=== PATIENT | male | born 1995 | race Two or more races ===

== ENCOUNTER 2020-11-19 16:08 | Emergency (ER) | payer SELFPAY ==
--- NOTE | 2020-11-19 17:06 | EDM.PDOC ---
<Nereida Garcia - Last Filed: 11/19/20 17:28> ED HPI GENERAL MEDICAL PROBLEM - General Chief Complaint: Skin Complaint Stated Complaint: CUT ON KNEE Time Seen by Provider: 11/19/20 16:50 Source of Information: Reports: Patient History Limitations: Reports: No Limitations - History of Present Illness INITIAL COMMENTS - FREE TEXT/NARRATIVE: 25 year old male presents with a wound to his right knee presents with increased pain, swelling and redness. Patient reports that 4 days ago he remembers hitting his knee on the door and having some pain and then noticing a reddened area later in the night. Over the next couple days redness, swelling, and pain increased. Purulent drainage now present. He denies fevers, or systemic symptoms. Onset: Gradual Onset Date: 11/15/20 Duration: Day(s):, Getting Worse Location: Reports: Lower Extremity, Right Quality: Reports: Burning, Throbbing Severity: Moderate Improves with: Reports: Rest Worsens with: Reports: Movement Context: Reports: Other (noticed knee pain and then reddness "came out of no where") Associated Symptoms: Reports: No Other Symptoms Right Knee Pain Score (Numeric/FACES): 2 - Related Data Allergies Allergy/AdvReac Type Severity Reaction Status Date / Time No Known Allergies Allergy Verified 11/19/20 16:36 Home Meds: Home Meds Citalopram [Citalopram HBr] 40 mg PO BEDTIME 11/19/20 [History] Mirtazapine [Remeron] 30 mg PO BEDTIME 11/19/20 [History] Past Medical History HEENT History: Reports: Impaired Vision Musculoskeletal History: Reports: Fracture Psychiatric History: Reports: Anxiety, Dementia - Past Surgical History Musculoskeletal Surgical History: Reports: ORIF Social & Family History - Tobacco Use Tobacco Use Status *Q: Never Tobacco User - Caffeine Use Caffeine Use: Reports: Soda - Recreational Drug Use Recreational Drug Use: No ED ROS GENERAL - Review of Systems Review Of Systems: See Below Constitutional: Reports: No Symptoms. Denies: Fever, Chills, Weakness, Fatigue HEENT: Reports: No Symptoms Respiratory: Reports: No Symptoms. Denies: Shortness of Breath, Wheezing Cardiovascular: Reports: No Symptoms. Denies: Chest Pain, Dyspnea on Exertion Endocrine: Reports: No Symptoms GI/Abdominal: Reports: No Symptoms. Denies: Abdominal Pain, Nausea, Vomiting : Reports: No Symptoms Musculoskeletal: Reports: No Symptoms. Denies: Joint Pain Skin: Reports: No Symptoms, Wound (erythemia and edematous open area of skin on patients right knee, weaping serosanguinist drainage. small 0.5 cm pustule that is contained at 7 o clock location. erythema extends in a 1.5 inch radius around open area on center of right knee. No concern for septic joint as there is no joint effusion ) Neurological: Reports: No Symptoms. Denies: Confusion, Dizziness, Headache, Numbness Psychiatric: Reports: No Symptoms Hematologic/Lymphatic: Reports: No Symptoms Immunologic: Reports: No Symptoms ED EXAM, SKIN/RASH Exam: See Below Text/Narrative:: Adan is well appearing, resting on cart with no apparent distress. Respirations are regular and non labored. skin is warm and dry. He is alert and oriented. Afebrile. Wound to center of right knee that is warm, erythemic and edematous. It is weeping serosanguineous drainage. small 0.25 cm purulent pustule at 8 oclock. The redness extends in a circular radius 1.5 inches around wound. There is no joint tenderness or effusion noted. Exam Limited By: No Limitations General Appearance: Alert, WD/WN, No Apparent Distress Ears: Normal External Exam Nose: Normal Inspection Throat/Mouth: Normal Inspection Head: Atraumatic Neck: Normal Inspection, Non-Tender Respiratory/Chest: No Respiratory Distress, Lungs Clear, Normal Breath Sounds. No: Respiratory Distress, Wheezing Cardiovascular: Normal Peripheral Pulses, No Edema GI/Abdominal: Soft, Non-Tender, No Distention (Male) Exam: Deferred Rectal (Males) Exam: Deferred Back Exam: Normal Inspection, Full Range of Motion Extremities: Increased Warmth (increased warmth and redness to right knee with serosanguinist drainage. ), Redness, Other (no joint effusion or joint tenderness). No: Joint Swelling Neurological: Alert, Oriented, Normal Cognition, Normal Gait Psychiatric: Normal Affect, Normal Mood Skin: Warm, Dry, Erythema, Increased Warmth Location, Skin: Lower Extremity, Right Associated features: Warmth, Tenderness, Swelling, Weeping Departure - Departure Disposition: Home, Self-Care 01 Condition: Good Clinical Impression: Cellulitis - Discharge Information Instructions: Cellulitis, Adult, [id number] Referrals: PCP,None [Primary Care Provider] - Forms: ED Department Discharge Care Plan Goals: The wound on your right knee appears to be infected. There is no evidence of infection in your joint at this point. Please start Cleocin (Antibiotic) 300 mg three times per day, 10 day prescription sent. If wound is completely better you may stop taking the antibiotic after the 7 days but if you are tolerating the medication and you think it needs a couple more days of antibiotics, please continue for the full 10 days. Return to the ER if the redness and swelling increase, if you develop a fever or if you feel that the antibiotic is not helping after a couple days. Warm compress to increase blood flow and healing to wound. Tylenol/ ibuprofen for discomfort/ fever. Culture results should be available on Saturday but this antibiotic should be adequate. Sepsis Event Note (ED) - Evaluation Sepsis Screening Result: No Definite Risk <Bhavesh Gtz - Last Filed: 11/19/20 17:46> Course - Vital Signs Last Recorded V/S: Last Vital Signs Temp 97.9 F 11/19/20 16:41 Pulse 81 11/19/20 16:41 Resp 16 11/19/20 16:41 BP 121/81 11/19/20 16:41 Pulse Ox 96 11/19/20 16:41 - Orders/Labs/Meds Orders: Active Orders 24 hr Category Date Time Status CULTURE WOUND + SMEAR [RM] Stat Lab 11/19/20 17:06 Received Departure - Departure Time of Disposition: 17:40 Sepsis Event Note (ED) - Focused Exam Vital Signs: Vital Signs Temp Pulse Resp BP Pulse Ox 11/19/20 16:41 97.9 F 81 16 121/81 96 Attestation - Student - Attestation Statement Attestation Statement: I personally performed or re-performed the physical examination and medical decision making. I have verified all student documentation or findings, including history, physical exam and/or medical decision making.
== END 2020-11-19 17:40 | disposition home or self-care (01) ==
LOC: JP.ED 16:08
DX: L03.115 Cellulitis of right lower limb (principal)
CPT/HCPCS: 87070; 87077; 87186; 87205; 99283